=== PATIENT | female | born 1985 | race Caucasian/White ===

== ENCOUNTER 2017-11-01 20:34 | Emergency (ER) | payer MEDICAID ==
[~2017-11-01] VITALS: Ht 170.2 cm; Wt 103.5 kg
[2017-11-01] MEDS ORDERED: IMITREX50 MG PO (20:50)
[2017-11-01] MEDS ORDERED: NAPROXEN500 MG PO (21:10)
[2017-11-01] MEDS ORDERED: CYCLOBENZAPRINE10 MG PO (21:10)
== END 2017-11-01 21:27 | disposition home or self-care (01) ==
LOC: ED 20:34
DX: M54.5 Low back pain (principal); G89.29 Other chronic pain; F17.200 Nicotine dependence, unspecified, uncomplicated; Z88.6 Allergy status to analgesic agent
CPT/HCPCS: 99283